=== PATIENT | female | born 1935 | race Caucasian/White ===

== ENCOUNTER → 2016-12-31 | Day surgery (SDC) | payer MEDICARE ==
[~2016-12-31] VITALS: Ht 162.6 cm; Wt 72.6 kg
[~2016-12-31] MED LIST: CATAPRES0.2 MG PO; LISINOPRIL2.5 MG PO; OMEPRAZOLE20 MG PO; TRAMADOL50 M1 PO; TRAZODONE 50MG50 MG PO; TRAZODONE HCL50 MG PO; VALIUM 5MG TABLE5 MG PO; VICODIN 5/500 T1 TAB PO; [UNRECOGNIZED DRUG - OTHER] PO
[2016-12-31 15:04] VITALS: BP 160/70
[2016-12-31 15:14] VITALS: BP 160/70
[2016-12-31 15:28] VITALS: BP 160/70
[2016-12-31 15:30] VITALS: BP 161/73
--- NOTE | 2016-12-31 15:35 | Procedure Note ---
Procedure detail Date of procedure: 12/31/16 Anesthesiologist: Manuel Pitt Complications: None Pre-procedure diagnosis: RIGHT sacroiliitis. Post-procedure diagnosis: Same Indications for procedure: Very pleasant 81-year-old white female that has been complaining of RIGHT buttock and hip pain. Patient describes the pain in the RIGHT hip as constant, dull, aching. She has extreme point tenderness of the RIGHT SI joint. She presents her procedure clinic today for RIGHT SI joint injection. Procedure detail: Procedure: Right sacroliliac joint injection under fluoroscopy Informed consent was obtained and the risk and benefits of the procedure were explained to the patient.~ The patient was taken to the procedure room and noninvasive monitors were placed including noninvasive blood pressure cuff and pulse oximeter.~ The patient was placed prone on the procedure table.~ The~ right hip was cleansed using Betadine as a cleansing solution.~ C-arm fluorosocpy was used to view the right SI joint.~ The skin and subcutaneous tissues were anesthetized using Lidocaine 1.5% and a 25-gauge needle.~ After this, a 22-gauge spinal needle was inserted under fluoroscopic guidance into the inferior aspect of the right SI joint.~ Omnipaque dye was injected and a good spread was seen throughout the joint.~ After this, approximately 5 mL of bupivacaine 0.25% and Depo-Medrol 40 mg was incrementally injected into the sacroiliac joint.~ The patient tolerated the procedure well with no complications.~ The patient was observed in the Pain Clinic, then discharged home neurologically intact.~ Plan and disposition: Patient was evaluated 10 minutes post procedure. Patient reports 90 percent improvement in terms of her RIGHT hip pain. She'll return to see us in the pain clinic for further evaluation. at [id number]
[2016-12-31 15:37] VITALS: BP 140/73
== END ==
LOC: PM 14:34
PROC: 3E0U33Z Introduction of Anti-inflammatory into Joints, Percutaneous Approach (ICD-10-PCS; principal; 2016-12-31)
PROC: 3E0U3BZ Introduction of Anesthetic Agent into Joints, Percutaneous Approach (ICD-10-PCS; 2016-12-31)
DX: M25.551 Pain in right hip (principal); M53.3 Sacrococcygeal disorders, not elsewhere classified
CPT/HCPCS: G0260; J1040; Q9966

== ENCOUNTER → 2017-02-11 | Day surgery (SDC) | payer MEDICARE ==
[~2017-02-11] VITALS: Ht 162.6 cm; Wt 72.6 kg
[2017-02-11 13:30] VITALS: BP 156/76
[2017-02-11 13:46] VITALS: BP 180/77
[2017-02-11 13:47] VITALS: BP 184/73
--- NOTE | 2017-02-11 13:54 | Procedure Note ---
Procedure detail Date of procedure: 02/11/17 Anesthesiologist: Manuel Pitt Complications: None Pre-procedure diagnosis: RIGHT sacral ileitis. RIGHT trochanteric bursitis. Post-procedure diagnosis: Same. Indications for procedure: Very pleasant 81 white female were treating her pain clinic for chronic RIGHT hip pain. She has chronic RIGHT sacral ileitis. Also, RIGHT trochanteric bursitis. She presents to our procedural clinic today for a repeat RIGHT SI joint injection. Also, we will add RIGHT trochanteric bursa injection. Procedure detail: Procedure: Right sacroliliac joint injection under fluoroscopy Informed consent was obtained and the risk and benefits of the procedure were explained to the patient.~ The patient was taken to the procedure room and noninvasive monitors were placed including noninvasive blood pressure cuff and pulse oximeter.~ The patient was placed prone on the procedure table.~ The~ right hip was cleansed using Betadine as a cleansing solution.~ C-arm fluorosocpy was used to view the right SI joint.~ The skin and subcutaneous tissues were anesthetized using Lidocaine 1.5% and a 25-gauge needle.~ After this, a 22-gauge spinal needle was inserted under fluoroscopic guidance into the inferior aspect of the right SI joint.~ Omnipaque dye was injected and a good spread was seen throughout the joint.~ After this, approximately 5 mL of bupivacaine 0.25% and Depo-Medrol 40 mg was incrementally injected into the sacroiliac joint.~ The patient tolerated the procedure well with no complications.~ The patient was observed in the Pain Clinic, then discharged home neurologically intact.~ Procedure:Right trochanteric bursa injection under fluoroscopy We then moved to the right trochanteric bursa.~ C-arm fluoroscopy was used to view the right greater trochanter.~ The skin and subcutaneous tissues overlying the right greater trochanter were anesthetized using lidocaine, 1.5% and a 25- gauge needle.~ After this, a 22-gauge spinal needle was inserted and advanced until it contacted the right greater trochanter.~ Dye was injected and good spread was seen throughout the right trochanteric bursa. After this, approximately 5 mL of bupivacaine, 0.25% and Depo-Medrol, 40 mg was incrementally injected into the right trochanteric bursa.~ The patient tolerated the procedure well with no complications. Plan and disposition: Patient was reevaluated 10 minutes post procedure. She reports 90 percent improvement terms for RIGHT hip pain. She'll return system pain clinic for further evaluation. at [id number]
[2017-02-11 14:02] VITALS: BP 168/74
== END ==
LOC: PM 13:09
PROC: 3E0U33Z Introduction of Anti-inflammatory into Joints, Percutaneous Approach (ICD-10-PCS; principal; 2017-02-11)
PROC: 3E0U3BZ Introduction of Anesthetic Agent into Joints, Percutaneous Approach (ICD-10-PCS; 2017-02-11)
PROC: 3E0U3NZ Introduction of Analgesics, Hypnotics, Sedatives into Joints, Percutaneous Approach (ICD-10-PCS; 2017-02-11)
PROC: 3E0U33Z Introduction of Anti-inflammatory into Joints, Percutaneous Approach (ICD-10-PCS; 2017-02-11)
DX: M46.1 Sacroiliitis, not elsewhere classified (principal); M70.61 Trochanteric bursitis, right hip
CPT/HCPCS: 20610; G0260; J1030; Q9966

== ENCOUNTER 2017-04-09 16:05 | Emergency (ER) | payer MEDICARE ==
[~2017-04-09] VITALS: Ht 162.6 cm; Wt 72.6 kg
[2017-04-09] MEDS ORDERED: BACLOFEN 10MG T10 MG PO (16:24)
[2017-04-09] MEDS ORDERED: ZOLPIDEM 10MG T10 MG PO (16:25)
--- OUTSIDE RECORDS SUMMARY | 2017-04-09 16:29 | External Medical Summary Rpt | CCD ---
Author Author , BOB ROJAS Address Unknown Phone [email or web address] Care Team Providers Care Sewage Screen Operator Name Role Phone Judi Law MD, Unavailable Unavailable Judi Law MD Purpose Continuity of Care Document - 01-24-2013 through 2016 Problems Code Diagnosis DOS Provider Status 401.9 401.9 01-24-2013 [facility] 780.4 780.4 01-24-2013 [facility] VERTIGO Allergies, Adverse Reactions, Alerts Type Allergy to substance Adverse Reaction to Substance Substance Reaction Severity INGREDIENT: NO KNOWN Unknown Unknown - NO KNOWN DRUG ALLERGY Medications Na ND Rx Da Fi Fi Am Da Di Ph RX Ph St me C No te ll ll ou ys ag ar # ys at rm s nt no ma ic us Or Da si cy ia de te s n re d DI 51 09 0 No AZ 07 -0 EP 90 8- Lo AM 28 20 ng 5 52 13 er 0 MG Ac ti TA ve BL ET Vital Signs 01-24-2013 21:40 Name Value Interpretat Reference Comment ion Range Body 98.7 [degF] Temperature BP 91 mm[Hg] Diastolic BP Systolic 184 mm[Hg] Heart 63 /min Rate/Pulse O2% 95 % Respiratory 18 /min Rate 01-24-2013 21:38 Name Value Interpretat Reference Comment ion Range Body 98.7 [degF] Temperature 01-24-2013 20:53 Name Value Interpretat Reference Comment ion Range BP 96 mm[Hg] Diastolic BP Systolic 180 mm[Hg] Heart 64 /min Rate/Pulse O2% 95 % Respiratory 18 /min Rate Results Labs Lab Lab Date Result Refere Interp Status Commen Order Detail nces retati t Range on COMPREHENSIVE METABOLIC PANEL (01-24-2013 19:34) Glucose 184 74-106 complet 013 mg/dL ed Bld-mCn 19:34 c BUN 15 7-18 complet Bld-mCn 013 mg/dL ed c 19:34 Creat 2 1.2 0.6-1.0 complet SerPl-m 013 mg/dL ed Cnc 19:34 ESTIMAT 45 50-200 complet ED 013 ML/MIN ed CREATIN 19:34 INE CLEARAN CE GFR 43 59- complet (ESTIMA 013 ML/MIN ed ALYSON) 19:34 Sodium 137 136-145 complet SerPl-s 013 mmoL/L ed Cnc 19:34 Potassi 3.6 3.5-5.1 complet um 013 mmoL/L ed SerPl-s 19:34 Cnc Chlorid 102 98-107 complet e 013 mmoL/L ed SerPl-s 19:34 Cnc CO2 27 21.0-32 complet SerPl-s 013 mmoL/L .0 ed Cnc 19:34 Calcium 8.9 8.5-10. complet 013 mg/dL 1 ed SerPl-m 19:34 Cnc Prot 7.4 6.4-8.2 complet SerPl-m 013 gm/dL ed Cnc 19:34 Albumin 4.1 3.4-5.0 complet 013 gm/dL ed SerPl-m 19:34 Cnc Globuli 3.3 1.3-3.2 complet n 013 gm/dL ed Ser-mCn 19:34 c Albumin 1.2 UNK 1.1-1.8 complet /Glob 013 ed SerPl-m 19:34 Rto Bilirub 0.6 0.2-1.0 complet 013 mg/dL ed SerPl-m 19:34 Cnc AST 42 U/L 15-37 complet SerPl-c 013 ed Cnc 19:34 ALT 74 U/L 30-65 complet SerPl-c 013 ed Cnc 19:34 ALP 108 U/L 50-136 complet SerPl-c 013 ed Cnc 19:34 T4 SerPl-mCnc (01-24-2013 19:34) T4 09-08-2 7.8 4.7-13. complet SerPl-m 013 ug/dl 3 ed Cnc 19:34 THYROID STIM HORMONE (01-24-2013 19:34) THYROID 08-2 4.60 0.358-3 complet STIM 013 uIU/ml .740 ed HORMONE 19:34 CBC with AUTO DIFF (01-24-2013 19:34) WBC # 09-08-2 6.0 4.8-10. complet Bld 013 K/MM3 8 ed Auto 19:34 RBC # 08-2 5.36 4.2-5.4 complet Bld 013 M/mm3 ed Auto 19:34 Hgb -08-2 16.0 12.2-16 complet Bld-mCn 013 g/dL .2 ed c 19:34 Hct Fr 08-2 48.3 % 37.0-47 complet Bld 013 .0 ed 19:34 MCV RBC 08-2 90.1 fl 82.2-97 complet 013 .8 ed 19:34 MCH RBC 08-2 29.8 pg 27-31.2 complet Qn 013 ed Auto 19:34 MEAN 08-2 33.1 31.8-35 complet CORPUSC 013 g/dl .4 ed ULAR 19:34 HGB CONC RDW RBC 08-2 15.3 % 11.5-17 complet Auto 013 .5 ed 19:34 Platele -08-2 164 142-424 complet t Bld 013 K/mm3 ed Ql 19:34 Manual MEAN 08-2 7.9 fl 7.4-10. complet PLATELE 013 4 ed T 19:34 VOLUME Granulo 08-2 70.1 % 37.0-80 complet cytes 013 .0 ed Fr Bld 19:34 Auto LYMPH % -08-2 24.3 % 10-50.0 complet 013 ed 19:34 Monocyt -08-2 3.9 % 1.7-9.3 complet es Fr 013 ed Bld 19:34 Auto Eosinop -08-2 1.2 % 0.1-12. complet hil Fr 013 0 ed Bld 19:34 Auto Basophi -08-2 0.5 % 0.1-2.0 complet ls Fr 013 ed Bld 19:34 Auto Granulo 09-08-2 4.2 1.8-7.8 complet cytes # 013 K/mm3 ed Bld 19:34 Auto Lymphoc 01-24-2 1.5 0.7-4.5 complet ytes Fr 013 K/mm3 ed Bld 19:34 Auto Monocyt 01-24-2 0.2 0.1-1.0 complet es # 013 K/mm3 ed Bld 19:34 Auto Eosinop 2 0.1 0.0-0.4 complet hil # 013 K/mm3 ed Bld 19:34 Auto Basophi 2 0.0 0-0.2 complet ls # 013 K/MM3 ed Bld 19:34 Auto ESR Bld Qn 15M (01-24-2013 19:34) ESR Bld 2 mm/hr 0-30 complet Qn 15M 013 ed 19:34 Encounters Encounter Start End Date Code Location Performer Type Date Emergency DANYELL Law MD (ER) 3 19:38 3 21:40 [facility]
--- OUTSIDE RECORDS SUMMARY | 2017-04-09 16:29 | External Medical Summary Rpt | CCD ---
Author Author , BOB ROJAS Address Unknown Phone [email or web address] Care Team Providers Care Options Trader Name Role Phone Judi Law MD, Unavailable Unavailable Judi Law MD Purpose Continuity of Care Document - 01-24-2013 through 2016 Problems Code Diagnosis DOS Provider Status 401.9 401.9 01-24-2013 [facility] 780.4 780.4 01-24-2013 [facility] VERTIGO Allergies, Adverse Reactions, Alerts Type Allergy [...] Law MD (ER) 3 19:38 3 21:40 [facility]
--- OUTSIDE RECORDS SUMMARY | 2017-04-09 16:29 | External Medical Summary Rpt | CCD ---
Author Author [employer] Address Unknown Phone Unavailable Purpose Continuity of Care Document - through 2016
--- NOTE | 2017-04-09 16:30 | Emergency Room Report ---
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 N Clinical Suspician of Infection? N Mental Status: 1 - Regular (Normal Baseline) Sepsis Risk:Low Sepsis Risk Have you (or family members/close friends) recently traveled outside the [place]? N If Yes, where/when: Have you had exposure to infectious disease within the past month? N TB? Other? Specify: Patient with chronic back pain and foot numbness. She believes she mixed up her medications last night, thought that she had mixed them up, so she didn't take any of her medications today. She takes Clonidine TID for HTN and presents with elevated BP. She takes Diazepam for anxiety and feels anxious today as she didn' t take it. She is not sure which medications are for what symptom. ALLERGIES Coded Allergies: No Known Drug Allergies (NKDA) (04/25/15) Home Medications Active Scripts Diazepam (Valium 5MG) 5 MG PO BID #20 TAB Prov: 01/24/13 Reported Medications BACLOFEN (Baclofen) 10 MG PO TID Zolpidem Tartrate (Zolpidem 10MG) 10 MG PO QHS CLONIDINE HYDROCHLORIDE (Catapres 0.2MG) 0.2 MG PO TID 90 Days TRAMADOL HCL (Tramadol) 50 MG PO PRN PRN PAIN LISINOPRIL (Lisinopril) (Unknown Dose) PO DAILY TRAZODONE HCL (Trazodone HCl) (Unknown Dose) PO QHS History Medical History General CAD? No Angina: No AR: No Hypertension? Yes Hyperlipidemia? No CHF? No DVT? No PE? No COPD? No Asthma? No Anemia? No GERD? Yes Gastric ulcers? No GI Bleed? No Hernia? No Thyroid Problems? No Hypothyroidism? No CVA? No Seizures? No Diabetes? No Renal Insuffiency? No End Stage Renal Disease? No UTI? No Stones? No BPH? No GB Disease: No Nephritic Syndrome? No Asplenia? No Hepatitis? No Sickle Cell Disease? No Arthritis? Yes Migraines? No Cataracts? No Glaucoma? No MRSA? No HIV? No TB? No Anxiety? No Depression? No Cancer? No More? Yes Additional hx: HUGGINS'S CYST Immunization Hx DT/Tetanus 1-4 YRS Flu LAST YEAR Pneumonia 1-4 YRS Surgical Hx Previous Surgery?Y RIGHT BREAST CYSTS Tubal Ligation BOWEL RESECTION/ COLOSTOM COLOSTOMY REVERSAL HUGGINS'S CYST Family History Family Hx Diabetes Yes CAD Yes Hypertension Yes Cancer Yes TB No Social History Smoking Hx Smoker: Never Smoker Tobacco: No Packs/day N/A Alcohol Alcohol: No Review of Systems All Other Systems Reviewed and Negative Psychiatric/Neurological anxiety Physical Exam Vital Signs Vital Signs Date Time Temp Pulse Resp B/P Pulse O2 O2 Flow FiO2 Ox Delivery Rate 04/09 1701 97.8 82 18 185/99 100 04/09 1658 97.8 82 18 185/99 100 04/09 1613 97.5 94 18 196/110 100 General Appearance normal appearance, WD/WN, no apparent distress (slightly anxious ) Eye Exam - bilateral eye normal exam, bilateral eye PERRL, bilateral eye EOMI Neck normal inspection, non-tender, supple, full range of motion Respiratory Status Yes: trachea midline, chest symmetrical, non tender chest. No: respiratory distress, tender on palpation, use of accessory muscles, pain on inspiration, pain on expiration, productive cough, non productive cough. Lung Sounds bilateral: normal breath sounds, lungs clear. Cardiovascular normal exam, regular rate/rhythm, no peripheral edema, no gallop, no JVD, no murmur, no rub, normal peripheral pulses Gastrointestinal normal bowel sounds, normal exam, non tender, soft, no organomegaly, no pulsatile mass, no guarding Extremities non-tender, normal range of motion, normal inspection, normal capillary refill, no calf tenderness, no pedal edema Strength 5 Upper Ext (L), 5 Upper Ext (R), 5 Lower Ext (L), 5 Lower Ext (R) Neurologic alert, normal exam, no motor/sensory deficits, oriented x 3, pt a little [place] but actually has good sensation to light touch and deep pressure to BLE; 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 Glascow Coma Scale Glascow Coma Scale Response Value EYE response: 4 Spontaneously 4 MOTOR response: 6 OBEYS 6 VERBAL response: 5 Oriented & Converses 5 Total 15 Reflexes DTR 3+ knee (R), 3+ knee (L) Skin intact, normal color, warm/dry, no rash cons.w/shingles Medical Decision Making LABS/Meds/Orders Pt receiving controlled substance in ED? No Progress ED Progress Notes 1 Date 04/09/17 Time 1644 Comment I spoke briefly with her POA, a cousin in [place], via the patient's cell phone. Our RN has spent a long time organizing the medications and labeling them for the patient, and gave her her first doses of Clonidine and Diazepam as well as Ultram from patient bottles, after labeling them and sorting them as they were mixed up in the bottles. We will recheck BP and d/c home. ED Progress Notes 2 Date 04/09/17 Time 1703 Comment BP is in the 180's systolic, calmer now. Departure Departure Time of Disposition 1645 Disposition DC Home or Self Care(routine) Clinical Impression Primary Impression: Medication administered Condition STABLE Referrals John COTTO,A.C. (Family) Patient Instructions DI for Safely Taking and Storing Medications -- Adults Additional Instructions Take your medications as prescribed; see Dr. Lopez in one to four days to recheck blood pressure and recheck overall. Discharge Counseling Counseled pt/family regarding diagnosis, test results, medications/RX, home care, follow up needs ED Critical Care Critical Care No at 1703
--- OUTSIDE RECORDS SUMMARY | 2017-04-09 16:30 | External Medical Summary Rpt ---
Author Author BOB Duffy, BOB Duffy Organization [employer] Address Unknown Phone Unavailable
--- OUTSIDE RECORDS SUMMARY | 2017-04-09 16:30 | External Medical Summary Rpt | CCD ---
Demographics Preferred Language Nigerien Marital Status Unknown Taoism Affiliation Unknown Race Unknown Ethnic Group Unknown Author Author , BOB ROJAS Address Unknown Phone Immunization Unable to retrieve immunization data due to connection failure with Immunization Registry. Please try again later.
--- OUTSIDE RECORDS SUMMARY | 2017-04-09 16:30 | External Medical Summary Rpt | CCD ---
Demographics Preferred Language Chadian Marital Status Unknown Evangelical Affiliation Unknown Race Unknown Ethnic Group Unknown Author Author , BOB ROJAS Address Unknown Phone Immunization Unable to retrieve immunization data due to connection failure with Immunization Registry. Please try again later.
[2017-04-09 17:01] VITALS: BP 185/99
== END 2017-04-09 17:13 | disposition home or self-care (01) ==
LOC: ER 16:05
DX: I10 Essential (primary) hypertension (principal); R20.2 Paresthesia of skin; K21.9 Gastro-esophageal reflux disease without esophagitis; F41.9 Anxiety disorder, unspecified